=== PATIENT | female | born 1965 | race African-American/Black ===

== ENCOUNTER 2016-10-22 09:53 | Observation (INO) | payer OTHER ==
[~2016-10-22] VITALS: Ht 152.4 cm; Wt 58.7 kg
[2016-10-22] VITALS (21 sets, daily range): BP systolic 115–139; BP diastolic 57–70; PULSE 67–85; RESP 15–20; Ht 152.4 cm; Wt 58.7 kg
[2016-10-22] MEDS ORDERED: SOD CHLORIDE 0.9% 1,000 ML IV SCH (11:30)
[2016-10-22] MEDS ORDERED: CEFAZOLIN 2 GM/50 ML (PMX) 50 ML IVPB ONE (11:30)
[2016-10-22] MEDS ORDERED: OMEP20CA16 PO (12:44)
[2016-10-22] MEDS ORDERED: LOSA100T7 PO (12:44)
[2016-10-22 13:13] LABS: BASOPHIL # 0.1 10^3/ul (0.0-0.1); BASOPHILS % 0.8 % (0.0-2.0); EOSINOPHILS # 0.2 10^3/ul (0.0-0.5); EOSINOPHILS % 2.4 % (0.0-7.0); HEMATOCRIT 40.6 % (37.0-47.0); HEMOGLOBIN 13.9 g/dl (12.0-16.0); LYMPHOCYTES # 2.2 10^3/ul (0.8-2.9); LYMPHOCYTES % 35.9 % (15.0-51.0); MEAN CORPUSCULAR HGB CONC 34.2 g/dl (32.0-37.0); MEAN CORPUSCULAR VOLUME 96.4 fl (82.0-101.0); MEAN PLATELET VOLUME 9.6 fl (7.4-10.4); MONOCYTE # 0.8 10^3/ul (0.3-0.9); MONOCYTES % 12.3 % (0.0-11.0); NEUTROPHILS % 48.4 % (39.0-77.0); PLATELET COUNT 294 10^3/UL (140-415); RED BLOOD COUNT 4.21 10^6/ul (4.20-5.40); RED CELL DISTRIBUTION WIDTH 12.5 % (11.5-14.5); WHITE BLOOD COUNT 6.2 10^3/ul (4.8-10.8)
[2016-10-22] MEDS ORDERED: ASPI-664 PO (13:19)
[2016-10-22 13:31] LABS: INR 0.96; PROTIME 12.8 Sec (12.2-14.2)
[2016-10-22 13:32] LABS: PARTIAL THROMBOPLASTIN TIME 27.5 Sec (25.0-35.0)
[2016-10-22 13:38] LABS: ALBUMIN 4.3 g/dl (3.3-4.9); ALBUMIN/GLOBULIN RATIO 1.1; BILIRUBIN,INDIRECT 0.5 mg/dl (0-1.1); BILIRUBIN,TOTAL 0.5 mg/dl (0.2-1.3); TOTAL PROTEIN 8.2 g/dl (6.1-8.1)
[2016-10-22 13:42] LABS: CALCIUM 9.2 mg/dl (8.4-10.2); CREATININE 0.75 mg/dl (0.44-1.00); POTASSIUM 3.6 mmol/L (3.5-5.1)
--- NOTE | 2016-10-22 16:29 | RADRPT ---
Vent Rate: 63 bpm RR Interval: 0 msec GA Interval: 158 msec QRS Duration: 88 msec QT Interval: 406 msec QTC Interval: 415 msec P-R-T [place]: 60 - 66 - 42 degrees Normal sinus rhythm Normal ECG Electronically Signed By: Mitch Peña [id number]
[2016-10-22] MEDS ORDERED: ONDANSETRON 4 MG INJ ONE (16:50)
[2016-10-22] MEDS ORDERED: LIDOCAINE 2% (SDV) 5 ML INJ ONE (16:50)
[2016-10-22] MEDS ORDERED: METOCLOPRAMIDE 10 MG INJ ONE (16:50)
[2016-10-22] MEDS ORDERED: ISOSULFAN BLUE 1% 5 ML INJ SC ONE (16:50)
[2016-10-22] MEDS ORDERED: CEFAZOLIN 1 GM INJ ONE (16:50)
[2016-10-22] MEDS ORDERED: PROPOFOL 20 ML ONE (16:50)
[2016-10-22] MEDS ORDERED: MEPERIDINE 100 MG INJ ONE (16:52)
[2016-10-22] MEDS ORDERED: OXYCODONE/ACETAMINOPHEN (5/325) TAB PO PRN ×2 (17:00)
[2016-10-22] MEDS ORDERED: MEPERIDINE 25 MG INJ IV PRN (17:00)
[2016-10-22] MEDS ORDERED: LABETALOL HCL 20MG INJ IV PRN (17:00)
[2016-10-22] MEDS ORDERED: FENTAnyl 50 MCG/ML VIAL IV PRN ×3 (17:00)
[2016-10-22] MEDS ORDERED: MIDAZOLAM 1 MG/ML 2 ML INJ IV PRN (17:00)
[2016-10-22] MEDS ORDERED: EPHEDrine SULFATE 50 MG/5 ML SYG IV PRN (17:00)
[2016-10-22] MEDS ORDERED: hydrALAzine 20 MG INJ IV PRN (17:00)
[2016-10-22] MEDS ORDERED: METOCLOPRAMIDE 10 MG INJ IV PRN (17:00)
[2016-10-22] MEDS ORDERED: DIPHENHYDRAMINE 50 MG INJ IV PRN (17:00)
[2016-10-22] MEDS ORDERED: HYDROmorphONE (0.2 MG/ML) 10ML SYG IV PRN ×3 (17:00)
[2016-10-22] MEDS ORDERED: ONDANSETRON 4 MG INJ IV PRN ×2 (17:00→18:30)
--- NOTE | 2016-10-22 18:00 | RADRPT ---
PROCEDURE: XR Chest. CLINICAL INDICATION: Left breast cancer. Preoperative. TECHNIQUE: Single frontal view. COMPARISON: None. FINDINGS: The lungs are clear. The heart size is normal. There is no pleural effusion or pneumothorax. A guide wire is present overlying the left breast. IMPRESSION: 1. Guidewire overlying the left breast. 2. Otherwise normal chest x-ray. RPTAT: QQ .Julio César Alston MD, MD Date Time Electronically viewed and signed by .Julio César Alston MD, on 10/22/2016 17:59 .R/
--- NOTE | 2016-10-22 18:04 | SIPON ---
Date/Time of Note Date/Time of Note DATE: 10/22/16 TIME: 18:01 Operative Report Preoperative Diagnosis Invasive cancer left breast Postoperative Diagnosis Same Operation/Procedure Performed It will directed left partial mastectomy and axillary dissection utilizing sentinel lymph node technique Surgeon: RADHA SHEFFIELD MD sales operations assistant: ANNA FREEMAN MD Anesthesia Type: general Estimated Blood Loss: 10 - 50 ml's Transfusion Required: no Specimens Left partial mastectomy specimen and sentinel lymph node with additional axillary nodes Grafts/Implants: none Complications: no RADHA SHEFFIELD MD Oct 22, 2016 18:04
[2016-10-22] MEDS ORDERED: ACETAMINOPHEN 1000MG/100ML IV 100 ML IVPB PRN (18:30)
[2016-10-22] MEDS ORDERED: morphine 2 MG INJ IV PRN (18:30)
[2016-10-22] MEDS: D5W-0.45 NACL + KCL 20 MEQ 1,000 ML IV SCH (20:33)
[2016-10-23 00:16] VITALS: BP 116/69; RESP 19
[2016-10-23] MEDS: D5W-0.45 NACL + KCL 20 MEQ 1,000 ML IV SCH ×3 (01:32→17:06)
--- NOTE | 2016-10-23 03:07 | OPR ---
DATE OF OPERATION: 10/22/2016 SURGEON: Wicho Ojeda MD MECHANICAL PROJECT ENGINEER: Darius Thayer MD ANESTHESIOLOGIST: Arya Rao MD PREOPERATIVE DIAGNOSIS: Invasive cancer, left breast. POSTOPERATIVE DIAGNOSIS: Invasive cancer, left breast. OPERATION PERFORMED: Left needle-directed partial mastectomy with axillary dissection utilizing sentinel lymph node technique. ANESTHESIA: General. INDICATIONS FOR PROCEDURE: The patient is an unfortunate 51-year- old female who underwent surveillance mammography. She was found to have a suspicious lesion in her left breast. Subsequent biopsy confirmed an invasive cancer. She was counseled as to the risks versus benefits of partial mastectomy with axillary dissection utilizing sentinel lymph node technique. She consented and was scheduled for surgery. DESCRIPTION OF PROCEDURE: The patient was brought to the operating theater, placed under general endotracheal tube anesthesia. The left breast and axillary region were prepped and draped in usual sterile fashion. Approximately 4 mL of 1 percent Lymphazurin blue dye was then injected peritumorally. The breast was gently massaged for approximately 12 minutes. At this point, a 3-cm incision was made in the left axillary hairline. Subcutaneous tissue was dissected with cautery down through the clavipectoral fascia. A dye-stained afferent lymphatic was identified, traced to an obvious sentinel node. The node was resected with the LigaSure device, sent for intraoperative analysis performed by attending pathologist, Dr. Adiel Pa. He found there to be a macrometastasis within the node; therefore, additional lymph nodes were harvested with blunt dissection along the chest wall. The long thoracic nerve was identified and kept out of harm's way. More superiorly, the axillary vein and thoracodorsal neurovascular bundle were identified and kept out of harm's way. Level 1 and level 2 node- bearing tissue was then harvested using the LigaSure device. The specimen was transected and sent for permanent pathologic analysis. The wound was irrigated. Minimal bleeding was controlled with cautery. A 10 flat Juan-Ronquillo drain was then brought through the left mid axillary line, cut to size, laid within the axilla and secured in place with 2-0 nylon suture. The incision was then reapproximated with a 4-0 Vicryl suture in subcuticular fashion. Attention was then directed to performing the partial mastectomy. The localization wire was located at approximately the 10 o'clock location and a curvilinear incision was made at this location. Subcutaneous tissue was dissected with cautery. Skin edges were then elevated with skin hooks and wide circumferential dissection of the tissue associated with the wire took place, taking great care to ensure adequate margin. The specimen was elevated, transected, oriented and sent for permanent pathologic analysis. The wound was irrigated. Minimal bleeding was controlled with cautery. The skin was reapproximated with 4-0 Vicryl suture in subcuticular fashion. Dermabond was then applied to both wounds. The patient tolerated procedure well. The estimated blood loss was 20 mL, there were no complications, and the patient was transported in stable condition to the recovery room, where a circumferential compression dressing was applied. Dictated By: Wicho Ojeda MD /natalia/griffin /Document#: [id number]
--- NOTE | 2016-10-23 03:13 | HP ---
DATE OF ADMISSION: 10/22/2016 CHIEF COMPLAINT AND HISTORY OF PRESENT ILLNESS: The patient is a 51-year-old female with a history of hypertension, left-sided breast cancer. The patient is being followed by Dr. Ojeda as an outpatient. The patient has a diagnosis of invasive cancer, left breast. Patient underwent left partial mastectomy and axillary dissection. Patient had significant chest wall pain and is being admitted for further management. The patient vital signs since surgery have remained stable. Patient denies any shortness of breath. No reported weakness or numbness in any extremities. The patient denies any headache. No reported vomiting. No reported chest condition. No reported abdominal pain. No recent fever or chills. Other than postoperative pain, the rest of the systems were unremarkable. ALLERGIES: NONE. PAST SURGICAL HISTORY: Status post . FAMILY HISTORY: Noncontributory. MEDICATIONS: Prior to admission: 1. Losartan 100 mg once a day. 2. Aspirin 81 mg a day. 3. Omeprazole 20 mg a day. PHYSICAL EXAMINATION: GENERAL: Patient conscious, awake, alert. VITAL SIGNS: Temperature 97.6, pulse 78, respiration 18, blood pressure 117/62, O2 sat 98 percent on room air. HEENT: No eye discharge. EOMI . Extraocular movement intact. Oropharynx clear. NECK: No mass. CHEST: Fairly clear. CVS: S1, S2 normal. No murmur. ABDOMEN: Soft, nondistended, nontender. No palpable mass. EXTREMITIES: No leg edema. Pedal pulses palpable. NEUROLOGIC: Patient is awake, alert, follows simple commands. Moves all extremities. DATA: WBC 6.2, hemoglobin 13.9, platelet 294. Sodium 145, potassium 3.6, BUN 12, creatinine 0.7. Liver enzymes normal. IMPRESSION: 1. Invasive left breast cancer, status post left partial mastectomy and axillary dissection. 2. Hypertension. PLAN: Patient admitted on a medical floor. Patient will be started on clear liquid diet, which will be advanced as tolerated. Patient will be given IV fluids, IV Tylenol, Percocet and IV morphine for pain control. We will use SCD for DVT prophylaxis. We will resume losartan and Prilosec tomorrow. We will hold off on aspirin due to recent surgery. We will continue to follow from medical standpoint. Dictated By: James Whaley MD /natalia/kiana /Document#: [id number] MTDD
[2016-10-23] MEDS ORDERED: PANTOPRAZOLE (EC) 40 MG TAB PO SCH (06:00)
[2016-10-23 07:00] VITALS: BP 115/61; RESP 18
[2016-10-23] MEDS ORDERED: LOSARTAN 50 MG TAB PO SCH (09:00)
[2016-10-23 14:00] VITALS: BP 144/69; RESP 20
--- NOTE | 2016-10-23 14:22 | PN ---
Date/Time of Note Date/Time of Note DATE: 10/23/16 TIME: 14:17 Assessment/Plan VTE Prophylaxis VTE Prophylaxis Intervention: ambulation Lines/Catheters IV Catheter Type (from Nrsg): Peripheral IV Assessment/Plan Assessment/Plan 51 years old female with invasive cancer of the left breast underwent left partial mastectomy with axillary dissection. Has been doing fine since operation. Vital signs stable. Instruction for the care of the Juan-Ronquillo was given by me and by the nurse to the patient. Patient will be discharged today is going to call Dr. Mcknight office make an appointment for follow-up. Subjective 24 Hr Interval Summary Free Text/Dictation No complain. Postop day #1 status post left partial mastectomy and axillary dissection for invasive cancer. Exam/Review of Systems Vital Signs Vitals Vital Signs Date Time Temp Pulse Resp B/P Pulse Ox O2 Delivery O2 Flow Rate FiO2 10/23/16 07:00 98.4 70 18 115/61 97 10/22/16 23:30 Room Air Intake and Output 10/22/16 10/22/16 10/23/16 15:00 23:00 07:00 Intake Total 800 ml 1585 ml Output Total 30 ml 5 ml Balance 770 ml 1580 ml Exam Vital signs stable afebrile. Juan-Ronquillo drain has drained 15 cc since operation serosanguineous fluid. Tresa can raise her left upper extremity and full range. Dressings are intact. Results Result Diagram: 10/22/16 1303 10/22/16 1303 Medications Medications Current Medications Ondansetron HCl 4 mg 4 mg Q6H PRN IV NAUSEA AND/OR VOMITING; Start 10/22/16 at 18:30 Potassium Chloride/Dextrose/ Sod Cl (D5-1/2ns + KCl 20 Meq) 1,000 ml @ 125 mls/ hr Q8H IV Last administered on 10/23/16 04:45; Admin Dose 125 MLS/HR; Start at 18:04 Morphine Sulfate 2 mg 2 mg Q1H PRN IV PAIN; Start 10/22/16 at 18:30 Acetaminophen (Ofirmev 1000mg/ 100ml Iv) 100 ml @ 400 mls/hr Q6H PRN IVPB PAIN ; Start 10/22/16 at 18:30 Losartan Potassium (Cozaar) 100 mg DAILY PO Last administered on 10/23/16 08: 50; Admin Dose 100 MG; Start 10/23/16 at 09:00 Pantoprazole (Protonix Tab) 40 mg DAILY@06 PO Last administered on 10/23/16 05 :54; Admin Dose 40 MG; Start 10/23/16 at 06:00 Acetaminophen (Tylenol Tab) 650 mg ONCE ONCE PO ; Start 10/23/16 at 14:30; Stop 10/23/16 at 14:31; Status ANNA BARBOZA MD Oct 23, 2016 14:22
[2016-10-23] MEDS ORDERED: ACETAMINOPHEN 325 MG TAB PO ONE (14:30)
[2016-10-23] MEDS ORDERED: HYDR-906 PO (16:25)
--- NOTE | 2016-10-23 18:56 | DS ---
Date/Time of Note Date/Time of Note DATE: 10/23/16 TIME: 18:55 Discharge Summary Admission/Discharge Info Admit Date/Time Oct 22, 2016 at 20:13 Discharge Date/Time Patient Condition: Stable Hx of Present Illness The patient is a 51-year-old female with a history of hypertension, left-sided breast cancer. The patient is being followed by Dr. Ojeda as an outpatient. The patient has a diagnosis of invasive cancer, left breast. Patient underwent left partial mastectomy and axillary dissection. Patient had significant chest wall pain and is being admitted for further management. The patient vital signs since surgery have remained stable. Patient denies any shortness of breath. No reported weakness or numbness in any extremities. The patient denies any headache. No reported vomiting. No reported chest condition. No reported abdominal pain. No recent fever or chills. Other than postoperative pain, the rest of the systems were unremarkable. Hospital Course 1. Invasive left breast cancer, status post left partial mastectomy and axillary dissection. 2. Hypertension. Home Meds Active Scripts Hydrocodone/Acetaminophen (Freedom 5-325 Tablet) 1 Each Tablet, 1 EACH PO Q4 for PAIN, #20 TAB Prov:SONYA POLLARD 10/23/16 Reported Medications Aspirin* (Aspirin* EC) 81 Mg Tablet., 81 MG PO DAILY, TAB 10/22/16 Omeprazole* (Omeprazole*) 20 Mg Capsule., 20 MG PO DAILY, #30 CAP 10/22/16 Losartan Potassium* (Losartan Potassium*) 100 Mg Tablet, 100 MG PO DAILY, TAB 10/22/16 Follow-up Plan Follow-up with Dr. Ojeda in 1 week Primary Care Provider Not On Staff Doctor SONAY POLLARD Oct 23, 2016 18:55
== END 2016-10-23 19:44 | disposition home or self-care (01) ==
LOC: SDS 09:53 → MS1 20:13
PROVIDERS: ADMIT Surgery Surgical Oncology; ATTEND Surgery Surgical Oncology
DX: C50.912 Malignant neoplasm of unspecified site of left female breast (principal); C77.3 Secondary and unspecified malignant neoplasm of axilla and upper limb lymph nodes; Z17.0 Estrogen receptor positive status [ER+]; I10 Essential (primary) hypertension; Z79.82 Long term (current) use of aspirin
CPT/HCPCS: 19301; 38525; 38900; 71010; 80053; 84703; 85025; 85610; 85730; 88307; 93005; J0690; J2175; J2405; J2765; J3480; Z7500; Z7512; Z7610; G0378; Q9968